=== PATIENT | female | born 1980 | race Caucasian/White ===

== ENCOUNTER 2016-08-03 13:52 | Emergency (ER) | payer OTHER ==
--- NOTE | 2016-08-03 14:18 | ED CLINICAL REPORT ---
Clinical Report - Physicians/Mid Levels [facility] [address] [place] [address] 08/03/2016 13:54 Patient: RICHY LINARES Time Seen: 14:10; upon arrival, initial patient contact, initial documentation, patient care assumed. Arrived- By private vehicle. Historian- patient. HISTORY OF PRESENT ILLNESS Chief Complaint: DENTAL PAIN. This started last night and is still present. Pain described as severe. The patient has had toothache, jaw pain and facial pain. (top L 3 back teeth, and 1 bottom back L tooth, teeth are broken and there was work done on them a long time ago, pain started last night, using oragel and otc motrin, no relief, no dentist). Similar symptoms previously: Milder. Recent medical care: Not recently seen/assessed. REVIEW OF SYSTEMS No fever or difficulty breathing. All systems otherwise negative, except as recorded above. PAST HISTORY See nurses notes. PROBLEMS: no known problems. ADDITIONAL SURGERIES: Gallbladder Surgery. Tubal Ligation. --14:13 Pasha Lira R.N. SOCIAL HISTORY Light tobacco smoker. Occasional alcohol use. History of occasional drug use: marijuana. No recent travel. Is a local resident. FAMILY HISTORY Negative. ADDITIONAL NOTES The nursing notes have been reviewed with agreement regarding the chief complaint, HPI, ROS, PMH and patient medications and allergies. PHYSICAL EXAM Vital Signs: 08/03/2016 14:10 BP: 142/120. HR: 88. RR: 20. O2 saturation: 100%. Temp: 98.2 F. Pain level now: 1010. Have been reviewed as abnormal. Hypertensive. Heart rate normal. Respiratory rate normal. Temperature normal. Oxygen saturation normal. Appearance: Alert. No acute distress. (tearful). Head: Normal external inspection. Eyes: Pupils equal, round and reactive to light. Conjunctivae and eyelids normal. ENT: Ears normal. Nose normal. Pharynx normal. Lips normal. Gums normal. No trismus present. Uvula midline. (all molars 1,2,3 L top and bottom capped, no obvious s/s of infection or caries, no gum swelling, and no obvious broken pieces). Neck: Normal inspection. Trachea midline. No adenopathy. Thyroid normal. Neck supple. Respiratory: No respiratory distress. Skin: Normal skin color. No rash. Normal skin turgor. Extremities: Extremities exhibit normal ROM. Extremities nontender. Neuro: Oriented X 3. No motor deficit. No sensory deficit. PROGRESS AND PROCEDURES Course of Care: 14:27 08/03/16. DC on hold, nurse reporting pt is hypertensive 1428. had discussion with pt re htn and tx plan 15:52 08/03/16. nurse reporting BP better, pt ok to dc. 08/03/2016 15:41 BP: 167/96. Vital Signs: have been reviewed as normal and appear to be correct. Patient counseled in person regarding the patient's stable condition and diagnosis. Differential Diagnosis: Other possible considerations: substance abuse, dental pain, caries, abscess. Above considerations are based on history and physical exam. Differential diagnosis was discussed with patient. Disposition: Discharged home in good and improved condition (14:18). Condition: good and stable. CLINICAL IMPRESSION Moderate dental pain. Uncontrolled hypertension. INSTRUCTIONS Warnings: GENERAL WARNINGS: Return or contact your physician immediately if your condition worsens or changes unexpectedly, if not improving as expected, or if other problems arise. Specifically return if problem worsens. Prescription Medications: Zofran 4 mg: Take 1 orally every six hours as needed for nausea/vomiting. Dispense ten (10). No refills. Substitution is permissible. Cleocin 300 mg: take 1 capsule orally every 6 hours for 7 days. No refills. Substitution is permissible. Keymar 5 mg / 325 mg tablets: take 1 to 2 orally every 6 hours as needed for pain. Dispense fifteen (15). No refills. Substitution is permissible. Follow-up: Follow up with a dentist in about three days even if well. Call for an appointment. Summary of care provided to patient. Screening today revealed the patient's blood pressure to be in the hypertensive range. The patient should follow up with a primary care provider for blood pressure management. Understanding of the discharge instructions verbalized by patient. (Electronically signed by Rocío Salinas A.R.N.P. 08/03/2016 18:17)
--- NOTE | 2016-08-03 14:19 | ED NURSING NOTES ---
Clinical Report - Nurses [facility] [place] [address] 08/03/2016 13:54 [id number] Triage time 14:10. Chief Complaint: (Dental pain, onset last night. Pt reports broken teeth on left upper and lower. No relief from OTC pain meds.). 14:22 08/03/16. ( Ice pack provided at Triage). SEPSIS SCREEN: Sepsis Screen. Negative (no infection suspected/documented). LINDSAY COMA SCORE: [place] Coma Scale: 15- eyes open spontaneously (4); best verbal response- oriented x 4 (5); best motor response- obeys commands (6). --14:23 Pasha Lira R.N. 14:10 08/03/16. BP: 142/120. HR: 88. RR: 20. O2 saturation: 100% on room air. Temp: 98.2 F. Pain level now: 02/06. --14:23 Pasha Lira R.N. Weight: 94.3 kg stated. Height/Length: 61 inches Per Patient. BMI: 39.3. --14:14 Pasha Lira R.N. Medications Ibuprofen Oral. --14:12 Pasha Lira R.N. Allergies Penicillins. --14:12 Pasha Lira R.N. History Arrived by private vehicle. Historian: patient. This started last night. 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 --14:23 Pasha Lira R.N. PROBLEMS: no known problems. ADDITIONAL SURGERIES: Gallbladder Surgery. Tubal Ligation. --14:13 Pasha Lira R.N. Interventions ID band on patient. To treatment room. --14:23 Pasha Lira R.N. PHYSICAL ASSESSMENT 14:26 08/03/16. Ambulatory to room. GENERAL / NEURO / PSYCH: Alert. Oriented X 4. Appears in distress. HEENT: Pupils equal, round and reactive to light. ( left side of her face is swollen). RESPIRATORY: Respirations not labored. Chest nontender. Breath sounds within normal limits. CVS: Capillary refill less than 2 seconds. Pulses within normal limits. SKIN: Skin is warm and dry. Normal skin turgor. ( bruising under the left eye, left facial errythema). --14:28 Pasha Lira R.N. NURSING PROGRESS NOTES 14:28 08/03/16. Head of bed elevated. Reassurance given. Two patient identifiers checked. Call light placed in reach. Bed placed in lowest position. Brakes of bed on. Patient ready for evaluation- chart flagged. --14:29 Pasha Lira R.N. 14:29 08/03/2016 Hydrocodone-APAP (Hydrocodone-Acetaminophen) PO 5/325 mg Tablets 1 tab given. Allergies verified, confirmed 5 rights and sedative warning given to the patient. --14:29 Jessica Sandoval R.N. 14:30 08/03/2016 Metoprolol PO Tablets 50 mg given. Allergies verified and confirmed 5 rights. --14:30 Jessica Sandoval R.N. 14:30 08/03/16. ( Discussed HTN with ANESTHESIA TECH.). --14:30 Pasha Lira R.N. 15:03 08/03/16. BP: 142/102 (large adult cuff) taken on the right arm, while sitting. Pain level now: 07/07. --15:03 Jessica Sandoval R.N. 15:10 08/03/16. BP: 154/100 (large adult cuff) taken on the left arm, while sitting. Pain level now: 08/07. --15:17 Jessica Sandoval R.N. 15:41 08/03/16. BP: 167/96 (large adult cuff) taken on the right arm, while sitting. --15:41 Jessica Sandoval R.N. DISPOSITION / DISCHARGE 16:08/03/16. Departure time: 16:Aug 03 2016. Condition at departure: improved. No learning barriers present. Discharge instructions provided and reviewed with the patient. Reviewed medication(s) side effects, precautions and dosing information. Prescription(s) given to the patient. Patient verbalized understanding. Written instructions provided in [place]. The patient was discharged by the nurse practitioner. She was discharged home and accompanied by spouse. She left the Emergency Department ambulatory and via private vehicle. Spouse driving. ( Patient given list of low income dental referral, patient had no further questions). --16:06 Jessica Sandoval R.N. 16:03 08/03/16. BP: 162/83 (large adult cuff) taken on the left arm, while sitting. HR: 80. RR: 16 (regular). O2 saturation: 100% on room air. Temp: 98.6 F (oral). Pain level now: 4/10. Additional comments: ANESTHESIA TECH notified and was ok with DC. --16:06 Jessica Sandoval R.N. Locked/Released at 08/03/2016 16:07 by Jessica Sandoval R.N.
--- NOTE | 2016-08-03 14:19 | ED NURSING NOTES ---
Clinical Report - Nurses [facility] [place] [address] 08/03/2016 13:54 [id number] Triage [facility] 14:10. Chief Complaint: (Dental pain, onset last night. Pt reports broken teeth on left upper and lower. No relief from OTC pain meds.). 14:22 08/03/16. ( Ice pack provided at Triage). SEPSIS SCREEN: Sepsis Screen. Negative (no infection suspected/documented). LINDSAY COMA SCORE: [place] Coma Scale: 15- eyes open spontaneously (4); best verbal response- oriented x 4 (5); best motor response- obeys commands (6). --14:23 Pasha Lira R.N. 14:10 08/03/16. BP: 142/120. HR: 88. RR: 20. O2 saturation: 100% on room air. Temp: 98.2 F. Pain level now: 02/06. --14:23 Pasha Lira R.N. Weight: 94.3 kg stated. Height/Length: 61 inches Per Patient. BMI: 39.3. --14:14 Pasha Lira R.N. Medications Ibuprofen Oral. --14:12 Pasha Lira R.N. Allergies Penicillins. --14:12 Pasha Lira R.N. History Arrived by private vehicle. Historian: patient. This started last night. 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 --14:23 Pasha Lira R.N. PROBLEMS: no known problems. ADDITIONAL SURGERIES: Gallbladder Surgery. Tubal Ligation. --14:13 Pasha Lira R.N. Interventions ID band on patient. To treatment room. --14:23 Pasha Lira R.N. PHYSICAL ASSESSMENT 14:26 08/03/16. Ambulatory to room. GENERAL / NEURO / PSYCH: Alert. Oriented X 4. Appears in distress. HEENT: Pupils equal, round and reactive to light. ( left side of her face is swollen). RESPIRATORY: Respirations not labored. Chest nontender. Breath sounds within normal limits. CVS: Capillary refill less than 2 seconds. Pulses within normal limits. SKIN: Skin is warm and dry. Normal skin turgor. ( bruising under the left eye, left facial errythema). --14:28 Pasha Lira R.N. NURSING PROGRESS NOTES 14:28 08/03/16. Head of bed elevated. Reassurance given. Two patient identifiers checked. Call light placed in reach. Bed placed in lowest position. Brakes of bed on. Patient ready for evaluation- chart flagged. --14:29 Pasha Lira R.N. 14:29 08/03/2016 Hydrocodone-APAP (Hydrocodone-Acetaminophen) PO 5/325 mg Tablets 1 tab given. Allergies verified, confirmed 5 rights and sedative warning given to the patient. --14:29 Jessica Sandoval R.N. 14:30 08/03/2016 Metoprolol PO Tablets 50 mg given. Allergies verified and confirmed 5 rights. --14:30 Jessica Sandoval R.N. 14:30 08/03/16. ( Discussed HTN with [facility].). --14:30 Pasha Lira R.N. 15:03 08/03/16. BP: 142/102 (large adult cuff) taken on the right arm, while sitting. Pain level now: 07/07. --15:03 Jessica Sandoval R.N. 15:10 08/03/16. BP: 154/100 (large adult cuff) taken on the left arm, while sitting. Pain level now: 08/07. --15:17 Jessica Sandoval R.N. 15:41 08/03/16. BP: 167/96 (large adult cuff) taken on the right arm, while sitting. --15:41 Jessica Sandoval R.N. DISPOSITION / DISCHARGE 16:08/03/16. Departure time: 16:Aug 03 2016. Condition at departure: improved. No learning barriers present. Discharge instructions provided and reviewed with the patient. Reviewed medication(s) side effects, precautions and dosing information. Prescription(s) given to the patient. Patient verbalized understanding. Written instructions provided in [place]. The patient was discharged by the nurse practitioner. She was discharged home and accompanied by spouse. She left the Emergency Department ambulatory and via private vehicle. Spouse driving. ( Patient given list of low income dental referral, patient had no further questions). --16:06 Jessica Sandoval R.N. 16:03 08/03/16. BP: 162/83 (large adult cuff) taken on the left arm, while sitting. HR: 80. RR: 16 (regular). O2 saturation: 100% on room air. Temp: 98.6 F (oral). Pain level now: 4/10. Additional comments: [employer] notified and was ok with DC. --16:06 Jessica Sandoval R.N. Locked/Released at 08/03/2016 16:07 by Jessica Sandoval R.N.
--- NOTE | 2016-08-03 14:19 | ED ORDER SUMMARY ---
..... Patient: RICHY LINARES OrderSheet [facility] VisitID: [id number] [address] [place] [address] 35y, F Registration Date/Time: 08/03/2016 ORDER SHEET Weight: 94.3 kg (stated) Allergies: Penicillins GENERAL ORDERS: MEDICATION ORDERS: Hydrocodone-APAP PO 5/325 mg (NOW, HIGH ALERT MEDICATION) (14:15 08/03/2016 HBivens A.R.N.P.) (14:29 JSanders R.N.) Metoprolol PO 50 mg (HIGH ALERT MEDICATION, NOW) (14:25 08/03/2016 HBivens A.R.N.P.) (14:30 JSanders R.N.) IV FLUIDS: ORDER SHEET NOTES: [Electronically signed by Jessica Sandoval R.N. (16:07 08/03/2016)] [Electronically signed by Rocío Salinas.R.N.P. (18:17 08/03/2016)] [Electronically locked/signed by Jessica Sandoval R.N. (16:07 08/03/2016)]
--- NOTE | 2016-08-03 14:19 | ED ORDER SUMMARY ---
..... Patient: RICHY LINARES OrderSheet [facility] VisitID: [id number] [address] [place] [address] 35y, F Registration Date/Time: 08/03/2016 ORDER SHEET Weight: 94.3 kg (stated) Allergies: Penicillins GENERAL ORDERS: MEDICATION ORDERS: Hydrocodone-APAP PO 5/325 mg (NOW, HIGH ALERT MEDICATION) (14:15 08/03/2016 HBivens A.R.N.P.) (14:29 JSanders R.N.) Metoprolol PO 50 mg (HIGH ALERT MEDICATION, NOW) (14:25 08/03/2016 HBivens A.R.N.P.) (14:30 JSanders R.N.) IV FLUIDS: ORDER SHEET NOTES: [Electronically signed by Jessica Sandoval R.N. (16:07 08/03/2016)] [Electronically signed by Rocío Salinas.R.N.P. (18:17 08/03/2016)] [Electronically locked/signed by Jessica Sandoval R.N. (16:07 08/03/2016)]
--- NOTE | 2016-08-03 18:17 | ED DISCHARGE INSTRUCTIONS ---
Patient: RICHY LINARES General Instructions [facility] VisitID: [id number] [place] [address] 35y, F Registration Date/Time: 08/03/2016 Moderate dental pain. Uncontrolled hypertension. INSTRUCTIONS Warnings: GENERAL WARNINGS: Return or contact your physician immediately if your condition worsens or changes unexpectedly, if not improving as expected, or if other problems arise. Specifically return if problem worsens. Prescription Medications: Zofran 4 mg: Take 1 orally every six hours as needed for nausea/vomiting. Dispense ten (10). No refills. Substitution is permissible. Cleocin 300 mg: take 1 capsule orally every 6 hours for 7 days. No refills. Substitution is permissible. [place] 5 mg / 325 mg tablets: take 1 to 2 orally every 6 hours as needed for pain. Dispense fifteen (15). No refills. Substitution is permissible. Follow-up: Follow up with a dentist in about three days even if well. Call for an appointment. Summary of care provided to patient. Screening today revealed the patient's blood pressure to be in the hypertensive range. The patient should follow up with a primary care provider for blood pressure management. Understanding of the discharge instructions verbalized by patient. ADDITIONAL INFORMATION Dental Pain A crack or cavity in the tooth, which exposes the sensitive inner area of the tooth can cause tooth pain. An infection in the gum or the root of the tooth can cause pain and swelling. The pain is often made worse by drinking hot or cold fluids, or biting on hard foods. Pain may spread from the tooth to the ear or jaw on the same side. Home Care: Avoid hot and cold foods and liquids since your tooth may be sensitive to temperature changes. If your tooth is chipped or cracked, or if there is a large open cavity, apply OIL OF CLOVES (available kkqd-how-oumrhce in drug stores) directly to the tooth to reduce pain. Some pharmacies carry an hdmc-nyo-lpqcgyb "toothache kit." This contains a paste, which can be applied over the exposed tooth to decrease sensitivity. A cold pack on your jaw over the sore area may help reduce pain. You may use acetaminophen (Tylenol) or ibuprofen (Motrin, Advil) to control pain, unless another medicine was prescribed. [ NOTE: If you have chronic liver or kidney disease or ever had a stomach ulcer or GI bleeding, talk with your doctor before using these medicines.] If you have signs of an infection, an antibiotic will be given. Take it as directed. Follow-Up as directed with a dentist. Your pain may go away with the treatment given. However, only a dentist can fully evaluate and treat the cause and prevent the pain from coming back again. TOOTHACHE IS A SIGN OF DISEASE IN YOUR TOOTH AND SHOULD BE EXAMINED AND TREATED BY A DENTIST. Get Prompt Medical Attention if any of the following occur: Your face becomes swollen or red Pain worsens or spreads to the neck Fever over 100.4 F (38.0 C) Unusual drowsiness; headache or stiff neck; weakness or fainting Pus drains from the tooth Difficulty swallowing or breathing High Blood Pressure -- To Be Confirmed [No Tx] Your blood pressure was higher today than normal. Sometimes anxiety or pain can cause a temporary rise in blood pressure that later returns to normal. If your blood pressure is high on one measurement, this does not mean that you have hypertension (a chronic illness). However, you must have your blood pressure measured again within the next few days to find out if its still high. A normal blood pressure is 120/80 or less. The first (top) number is the "systolic" pressure. The second (bottom) number is the "diastolic" pressure. Hypertension exists when either the top number is 140 or higher, OR the bottom number is 90 or higher on repeated measurements. Blood pressure in the range of 120-140 (systolic) or 80-89 (diastolic) is considered "pre-hypertension". This means your are at risk for getting hypertension. You should have regular blood pressure checks to be sure your blood pressure is not rising. Home Care: Measure your blood pressure on 3 different days and write down the results. This can be done at your doctor's office or this facility. Some pharmacies and grocery stores offer automated blood pressure machines for your use. Follow Up: If your blood pressure is "high" (over 120/80) on 2 out of 3 days, you will need to follow up with your doctor for further evaluation and treatment. DO NOT PUT THIS OFF! Untreated high blood pressure increases the risk for heart attack, also known as acute myocardial infarction, or AMI, and stroke. It is a treatable condition. Get Prompt Medical Attention if any of the following occur: Chest pain or shortness of breath Severe headache Throbbing or rushing sound in the ears Nosebleed Sudden severe abdominal pain Extreme drowsiness, confusion or fainting Dizziness or vertigo (dizziness with spinning sensation) Weakness of an arm or leg or one side of the face Difficulty with speech or vision Ondansetron Oral disintegrating tablet What is this medicine? ONDANSETRON (on QUYNH se codey) is used to treat nausea and vomiting caused by chemotherapy. It is also used to prevent or treat nausea and vomiting after surgery. How should I use this medicine? These tablets are made to dissolve in the mouth. Do not try to push the tablet through the foil backing. With dry hands, peel away the foil backing and gently remove the tablet. Place the tablet in the mouth and allow it to dissolve, then swallow. While you may take these tablets with water, it is not necessary to do so. Talk to your branch operations manager regarding the use of this medicine in children. Special care may be needed. What side effects may I notice from receiving this medicine? Side effects that you should report to your doctor or health intensive care ambulance paramedic as soon as possible: allergic reactions like skin rash, itching or hives, swelling of the face, lips, or tongue breathing problems dizziness fast or irregular heartbeat feeling faint or lightheaded, falls fever and chills swelling of the hands and feet tightness in the chest Side effects that usually do not require medical attention (report to your doctor or health intensive care ambulance paramedic if they continue or are bothersome): constipation or diarrhea headache What may interact with this medicine? Do not take this medicine with any of the following medications: -apomorphine -cisapride -dofetilide -dronedarone -pimozide -thioridazine -ziprasidone This medicine may also interact with the following medications: -carbamazepine -phenytoin -rifampicin -tramadol -other medicines that prolong the QT interval (cause an abnormal heart rhythm) What if I miss a dose? If you miss a dose, take it as soon as you can. If it is almost time for your next dose, take only that dose. Do not take double or extra doses. Where should I keep my medicine? Keep out of the reach of children. Store between 2 and 30 degrees C (36 and 86 degrees F). Throw away any unused medicine after the expiration date. What should I tell my health care provider before I take this medicine? They need to know if you have any of these conditions: heart disease history of irregular heartbeat liver disease low levels of magnesium or potassium in the blood an unusual or allergic reaction to ondansetron, granisetron, other medicines, foods, dyes, or preservatives or trying to get breast-feeding What should I watch for while using this medicine? Check with your doctor or health intensive care ambulance paramedic as soon as you can if you have any sign of an allergic reaction. Clindamycin Hydrochloride Oral capsule What is this medicine? CLINDAMYCIN (CHESTERIN allyson haskins) is a lincosamide antibiotic. It is used to treat certain kinds of bacterial infections. It will not work for colds, flu, or other viral infections. How should I use this medicine? Take this medicine by mouth with a full glass of water. Follow the directions on the prescription label. You can take this medicine with food or on an empty stomach. If the medicine upsets your stomach, take it with food. Take your medicine at regular intervals. Do not take your medicine more often than directed. Take all of your medicine as directed even if you think your are better. Do not skip doses or stop your medicine early. Talk to your branch operations manager regarding the use of this medicine in children. Special care may be needed. What side effects may I notice from receiving this medicine? Side effects that you should report to your doctor or health intensive care ambulance paramedic as soon as possible: allergic reactions like skin rash, itching or hives, swelling of the face, lips, or tongue dark urine pain on swallowing redness, blistering, peeling or loosening of the skin, including inside the mouth unusual bleeding or bruising unusually weak or tired yellowing of eyes or skin Side effects that usually do not require medical attention (report to your doctor or health intensive care ambulance paramedic if they continue or are bothersome): diarrhea itching in the rectal or genital area joint pain nausea, vomiting stomach pain What may interact with this medicine? chloramphenicol erythromycin kaolin products What if I miss a dose? If you miss a dose, take it as soon as you can. If it is almost time for your next dose, take only that dose. Do not take double or extra doses. Where should I keep my medicine? Keep out of the reach of children. Store at room temperature between 20 and 25 degrees C (68 and 77 degrees F). Throw away any unused medicine after the expiration date. What should I tell my health care provider before I take this medicine? They need to know if you have any of these conditions: kidney disease liver disease stomach problems like colitis an unusual or allergic reaction to clindamycin, lincomycin, or other medicines, foods, dyes like tartrazine or preservatives or trying to get breast-feeding What should I watch for while using this medicine? Tell your doctor or healthcare professional if your symptoms do not start to get better or if they get worse. Do not treat diarrhea with over the counter products. Contact your doctor if you have diarrhea that lasts more than 2 days or if it is severe and watery. Hydrocodone Bitartrate, Acetaminophen Oral tablet What is this medicine? ACETAMINOPHEN; HYDROCODONE (a set a SHANELL yoon fen; cody droe KOE done) is a pain reliever. It is used to treat mild to moderate pain. How should I use this medicine? Take this medicine by mouth. Swallow it with a full glass of water. Follow the directions on the prescription label. If the medicine upsets your stomach, take the medicine with food or milk. Do not take more than you are told to take. Talk to your branch operations manager regarding the use of this medicine in children. This medicine is not approved for use in children. What side effects may I notice from receiving this medicine? Side effects that you should report to your doctor or health intensive care ambulance paramedic as soon as possible: allergic reactions like skin rash, itching or hives, swelling of the face, lips, or tongue breathing problems confusion feeling faint or lightheaded, falls stomach pain yellowing of the eyes or skin Side effects that usually do not require medical attention (report to your doctor or health intensive care ambulance paramedic if they continue or are bothersome): nausea, vomiting stomach upset What may interact with this medicine? alcohol antihistamines isoniazid medicines for depression, anxiety, or psychotic disturbances medicines for sleep muscle relaxants naltrexone narcotic medicines (opiates) for pain phenobarbital ritonavir tramadol What if I miss a dose? If you miss a dose, take it as soon as you can. If it is almost time for your next dose, take only that dose. Do not take double or extra doses. Where should I keep my medicine? Keep out of the reach of children. This medicine can be abused. Keep your medicine in a safe place to protect it from theft. Do not share this medicine with anyone. Selling or giving away this medicine is dangerous and against the law. Store at room temperature between 15 and 30 degrees C (59 and 86 degrees F). Protect from light. Keep container tightly closed. Throw away any unused medicine after the expiration date. Discard unused medicine and used packaging carefully. Pets and children can be harmed if they find used or lost packages. What should I tell my health care provider before I take this medicine? They need to know if you have any of these conditions: brain tumor Crohn's disease, inflammatory bowel disease, or ulcerative colitis drink more than 3 alcohol-containing drinks per day drug abuse or addiction head injury heart or circulation problems kidney disease or problems going to the bathroom liver disease lung disease, asthma, or breathing problems an unusual or allergic reaction to acetaminophen, hydrocodone, other opioid analgesics, other medicines, foods, dyes, or preservatives or trying to get breast-feeding What should I watch for while using this medicine? Tell your doctor or health intensive care ambulance paramedic if your pain does not go away, if it gets worse, or if you have new or a different type of pain. You may develop tolerance to the medicine. Tolerance means that you will need a higher dose of the medicine for pain relief. Tolerance is normal and is expected if you take the medicine for a long time. Do not suddenly stop taking your medicine because you may develop a severe reaction. Your body becomes used to the medicine. This does NOT mean you are addicted. Addiction is a behavior related to getting and using a drug for a non-medical reason. If you have pain, you have a medical reason to take pain medicine. Your doctor will tell you how much medicine to take. If your doctor wants you to stop the medicine, the dose will be slowly lowered over time to avoid any side effects. You may get drowsy or dizzy when you first start taking the medicine or change doses. Do not drive, use machinery, or do anything that may be dangerous until you know how the medicine affects you. Stand or sit up slowly. There are different types of narcotic medicines (opiates) for pain. If you take more than one type at the same time, you may have more side effects. Give your health care provider a list of all medicines you use. Your doctor will tell you how much medicine to take. Do not take more medicine than directed. Call emergency for help if you have problems breathing. The medicine will cause constipation. Try to have a bowel movement at least every 2 to 3 days. If you do not have a bowel movement for 3 days, call your doctor or health intensive care ambulance paramedic. Too much acetaminophen can be very dangerous. Do not take Tylenol (acetaminophen) or medicines that contain acetaminophen with this medicine. Many non-prescription medicines contain acetaminophen. Always read the labels carefully. You have been given the following additional information: Dental Pain Hypertension, To Be Confirmed Ondansetron Oral disintegrating tablet Clindamycin Hydrochloride Oral capsule Hydrocodone Bitartrate, Acetaminophen Oral tablet (Electronically signed by Rocío Salinas A.R.N.PMargie 08/03/2016 18:17)
--- NOTE | 2016-08-03 18:18 | ED MED RECONCILIATION SUMMARY ---
Patient: RICHY LINARES Medication Reconciliation Report [facility] VisitID: [id number] [address] [place] [address] 35y, F Registration Date/Time: 08/03/2016 Weight: 94.3 kg Height/Length: 61 in. BMI: 39.3 ALLERGIES: Penicillins The patient's Home Medications are listed below: THE FOLLOWING MEDICATIONS NEED TO BE RECONCILED: Ibuprofen Oral The source(s) of the original Home Medication information: Not obtained. The following Medications were given to the patient in the Emergency Department: Hydrocodone-APAP [PO] PO 1 tab, administered: 08/03/2016 2:29:00 PM Metoprolol [PO] PO 50 mg, administered: 08/03/2016 2:30:00 PM The following Medications were prescribed to the patient: Zofran 4 mg: Take 1 orally every six hours as needed for nausea/vomiting. Dispense ten (10). No refills. Substitution is permissible. -- Rocío Salinas A.R.N.P. Cleocin 300 mg: take 1 capsule orally every 6 hours for 7 days. No refills. Substitution is permissible. -- Rocío Salinas, Martinez.R.N.P. Ralph 5 mg / 325 mg tablets: take 1 to 2 orally every 6 hours as needed for pain. Dispense fifteen (15). No refills. Substitution is permissible. -- Rocío Salinas A.R.N.P.
--- NOTE | 2016-08-03 18:18 | ED MED RECONCILIATION SUMMARY ---
Patient: RICHY LINARES Medication Reconciliation Report [facility] VisitID: [id number] [address] [place] [address] 35y, F Registration Date/Time: 08/03/2016 Weight: 94.3 kg Height/Length: 61 in. BMI: 39.3 ALLERGIES: Penicillins The patient's Home Medications are listed below: THE FOLLOWING MEDICATIONS NEED TO BE RECONCILED: Ibuprofen Oral The source(s) of the original Home Medication information: Not obtained. The following Medications were given to the patient in the Emergency Department: Hydrocodone-APAP [PO] PO 1 tab, administered: 08/03/2016 2:29:00 PM Metoprolol [PO] PO 50 mg, administered: 08/03/2016 2:30:00 PM The following Medications were prescribed to the patient: Zofran 4 mg: Take 1 orally every six hours as needed for nausea/vomiting. Dispense ten (10). No refills. Substitution is permissible. -- Rocío Salinas A.R.N.P. Cleocin 300 mg: take 1 capsule orally every 6 hours for 7 days. No refills. Substitution is permissible. -- Rocío Salinas, Martinez.R.N.P. [place] 5 mg / 325 mg tablets: take 1 to 2 orally every 6 hours as needed for pain. Dispense fifteen (15). No refills. Substitution is permissible. -- Rocío Salinas A.R.N.P.
--- NOTE | 2016-08-03 18:18 | ED MAR SUMMARY ---
..... Medication Administration Record [facility] [address] [place] [address] Patient: RICHY LINARES Visit ID: [id number] 35y, F Weight: 94.3 kg Height/Length: 61 in BMI: 39.3 ALLERGIES: Penicillins Given 14:29 08/03/2016 Jessica Sandoval R.N. Medication Administered: HYDROCODONE-APAP [PO] (HYDROCODONE-ACETAMINOPHEN), Dose: 1 tab 5/325 mg Tablets PO. Medication Ordered: Hydrocodone-APAP PO 5/325 mg (NOW, HIGH ALERT MEDICATION). Given 14:30 08/03/2016 Jessica Sandoval RCatie Medication Administered: METOPROLOL [PO], Dose: 50 mg Tablets PO. Medication Ordered: Metoprolol PO 50 mg (HIGH ALERT MEDICATION, NOW).
--- NOTE | 2016-08-03 18:18 | ED MAR SUMMARY ---
..... Medication Administration Record [facility] [address] [place] [address] Patient: RICHY LINARES Visit ID: [id number] 35y, F Weight: 94.3 kg Height/Length: 61 in BMI: 39.3 ALLERGIES: Penicillins Given 14:29 08/03/2016 Jessica Sandoval R.N. Medication Administered: HYDROCODONE-APAP [PO] (HYDROCODONE-ACETAMINOPHEN), Dose: 1 tab 5/325 mg Tablets PO. Medication Ordered: Hydrocodone-APAP PO 5/325 mg (NOW, HIGH ALERT MEDICATION). Given 14:30 08/03/2016 Jessica Sandoval RCatie Medication Administered: METOPROLOL [PO], Dose: 50 mg Tablets PO. Medication Ordered: Metoprolol PO 50 mg (HIGH ALERT MEDICATION, NOW).
== END 2016-08-03 16:05 | disposition home or self-care (01) ==
LOC: ED SRH 13:52
DX: K08.89 Other specified disorders of teeth and supporting structures (principal); R03.0 Elevated blood-pressure reading, without diagnosis of hypertension; F17.210 Nicotine dependence, cigarettes, uncomplicated; Z88.0 Allergy status to penicillin

== ENCOUNTER 2016-08-25 20:48 | Emergency (ER) | payer OTHER ==
--- NOTE | 2016-08-25 21:26 | ED ORDER SUMMARY ---
..... Patient: RICHY LINARES OrderSheet [facility] VisitID: [id number] [address] [place] [address] 36y, F Registration Date/Time: 08/25/2016 ORDER SHEET Weight: 94.3 kg (stated) Allergies: Strawberries, Penicillin GENERAL ORDERS: MEDICATION ORDERS: Hydrocodone-APAP PO 5/325 mg (NOW, HIGH ALERT MEDICATION) (21:17 08/25/2016 HBivens A.R.N.P.) (21:23 Bob R.N.) IV FLUIDS: ORDER SHEET NOTES: [Electronically signed by Tobin Rocha R.N. (21:40 08/25/2016)] [Electronically signed by Rocío SalinasR.N.PMargie (22:20 08/25/2016)] [Electronically locked/signed by Tobin Rocha R.N. (21:40 08/25/2016)]
--- NOTE | 2016-08-25 21:26 | ED NURSING NOTES ---
Clinical Report - Nurses [facility] [address] [place] [address] 08/25/2016 20:50 Patient: RICHY LINARES TRIAGE Triage time 20:53 Aug 25 2016. Acuity: LEVEL 5. Chief Complaint: RIGHT UPPER TOOTHACHE and SWELLING OF JAW / FACE. Alert. SEPSIS SCREEN: Sepsis Screen. Negative (no infection suspected/documented). --20:57 Tobin Rocha R.N. 20:53 08/25/16. HR: 89. RR: 18. O2 saturation: 98% on room air. Temp: 98.1 F. --20:57 Tobin Rocha R.N. 21:01 08/25/16. BP: 145/107. --21:01 Tobin Rocha R.N. 21:03 08/25/16. Pain level now: 12/07. --21:03 Tobin Rocha R.N. Weight: 94.3 kg stated. Height/Length: 61 inches Per Patient. BMI: 39.3. --20:53 Tobin Rocha R.N. Medications Clindamycin HCl Oral. --20:55 Tobin Rocha R.N. Ibuprofen Oral. --20:55 Tobin Rocha R.N. Tylenol. --20:55 Tobin Rcoha R.N. Tylenol Oral. --20:55 Tobin Rocha R.N. Allergies Strawberries. --20:55 Tobin Rocha R.N. Penicillin. --20:55 Tobin Rocha R.N. History Arrived by private vehicle. Historian: patient. Accompanied by family. The patient has a dental appointment scheduled. She has had ear pain. No fever. 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 PAST MEDICAL HX: Immunizations: up-to-date. Last normal menstrual period- July 2016. SOCIAL HX: Heavy tobacco smoker. No alcohol use or drug use. No infectious disease exposure. FALL RISK ASSESSMENT: Fall risk assessment completed. No fall risk identified. NUTRITIONAL RISK ASSESSMENT: The nutritional risk assessment revealed no deficiencies. FUNCTIONAL ASSESSMENT: Functional assessment: no impairments noted. LEARNING NEEDS ASSESSMENT: The learning needs assessment revealed no barriers. SKIN INTEGRITY ASSESSMENT: Skin integrity risk assessment completed. No skin integrity risk identified. --20:57 Tobin Rocha R.N. ( Pt has had a toothache for about a week now. She chipped her tooth and has had subsequent pain ever since. Pt saw her dentist on Sunday but they were unable to pull tooth d/t active infection. Pt presents today in pain.). --21:01 Tobin Rocha R.N. PROBLEMS: Hypertension. Dental Pain. --20:56 Tobin Rocha R.N. ADDITIONAL SURGERIES: Gallbladder Surgery. Tubal Ligation. --20:56 Tobin Rocha R.N. Interventions ID band on patient. To treatment room. --20:57 Tobin Rocha R.N. PHYSICAL ASSESSMENT Ambulatory to room. GENERAL / NEURO / PSYCH: Alert. Oriented X 4. Appears in pain and in distress. HEENT: Facial swelling present. Dental tenderness. Dental decay. ( R posterior molar chipped). Mucous membranes are pink. RESPIRATORY: Respirations not labored. SKIN: Skin is warm and dry. --20:59 Tobin Rocha R.N. NURSING PROGRESS NOTES The plan of care for this patient has been created. Monitoring of patient in place. Head of bed elevated. Reassurance given. Two patient identifiers checked. Call light placed in reach. Bed placed in lowest position. Patient ready for evaluation- ED physician notified. --20:59 Tobin Rocha R.N. 21:23 08/25/2016 Hydrocodone-APAP (Hydrocodone-Acetaminophen) PO 5/325 mg Tablets 1 tab given. Allergies verified, confirmed 5 rights and sedative warning given to the patient and patient's director physical therapy. --21:23 Tobin Rocha R.N. ( Pt doubled over in pain, ordered pain medication given, awaiting DC paperwork. Technical Operations Manager at bedside.). --21:27 Tobin Rocha R.N. DISPOSITION / DISCHARGE Condition at departure: stable. The goals identified in the patient's plan of care were met. No learning barriers present. Discharge instructions provided and reviewed with the patient and family. Reviewed warnings (Pt instructed not to drive or drink ETOH while taking the Rx [place].). Reviewed medication(s) side effects, precautions, dosing and course information. Prescription(s) given to the patient. Treatments reviewed (Oil of Cloves recommended for additional pain relief of toothache). Patient verbalized understanding. Written instructions provided in [place]. The patient was discharged by the nurse practitioner. She was discharged home and accompanied by director physical therapy. She left the Emergency Department ambulatory and via private vehicle. Technical Operations Manager driving. ( Pt dc'd in stable condition, ambulatory, sent with Rx and necessary DC paperwork.). --21:39 Tobin Rocha R.N. Departure time: 21:39 Aug 25 2016. --21:40 Tobin Rocha R.N. Locked/Released at 08/25/2016 21:40 by Tobin Rocha R.N.
--- NOTE | 2016-08-25 21:26 | ED NURSING NOTES ---
Clinical Report - Nurses [facility] [address] [place] [address] 08/25/2016 20:50 Patient: RICHY LINARES TRIAGE Triage time 20:53 Aug 25 2016. Acuity: LEVEL 5. Chief Complaint: RIGHT UPPER TOOTHACHE and SWELLING OF JAW / FACE. Alert. SEPSIS SCREEN: Sepsis Screen. Negative (no infection suspected/documented). --20:57 Tobin Rocha R.N. 20:53 08/25/16. HR: 89. RR: 18. O2 saturation: 98% on room air. Temp: 98.1 F. --20:57 Tobin Rocha R.N. 21:01 08/25/16. BP: 145/107. --21:01 Tobin Rocha R.N. 21:03 08/25/16. Pain level now: 12/07. --21:03 Tobin Rocha R.N. Weight: 94.3 kg stated. Height/Length: 61 inches Per Patient. BMI: 39.3. --20:53 Tobin Rocha R.N. Medications Clindamycin HCl Oral. --20:55 Tobin Rocha R.N. Ibuprofen Oral. --20:55 Tobin Rocha R.N. Tylenol. --20:55 Tobin Rocha R.N. Tylenol Oral. --20:55 Tobin Rocha R.N. Allergies Strawberries. --20:55 Tobin Rocha R.N. Penicillin. --20:55 Tobin Rocha R.N. History Arrived by private vehicle. Historian: patient. Accompanied by family. The patient has a dental appointment scheduled. She has had ear pain. No fever. 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 PAST MEDICAL HX: Immunizations: up-to-date. Last normal menstrual period- July 2016. SOCIAL HX: Heavy tobacco smoker. No alcohol use or drug use. No infectious disease exposure. FALL RISK ASSESSMENT: Fall risk assessment completed. No fall risk identified. NUTRITIONAL RISK ASSESSMENT: The nutritional risk assessment revealed no deficiencies. FUNCTIONAL ASSESSMENT: Functional assessment: no impairments noted. LEARNING NEEDS ASSESSMENT: The learning needs assessment revealed no barriers. SKIN INTEGRITY ASSESSMENT: Skin integrity risk assessment completed. No skin integrity risk identified. --20:57 Tobin Rocha R.N. ( Pt has had a toothache for about a week now. She chipped her tooth and has had subsequent pain ever since. Pt saw her dentist on Sunday but they were unable to pull tooth d/t active infection. Pt presents today in pain.). --21:01 Tobin Rocha R.N. PROBLEMS: Hypertension. Dental Pain. --20:56 Tobin Rocha R.N. ADDITIONAL SURGERIES: Gallbladder Surgery. Tubal Ligation. --20:56 Tobin Rocha R.N. Interventions ID band on patient. To treatment room. --20:57 Tobin Rocha R.N. PHYSICAL ASSESSMENT Ambulatory to room. GENERAL / NEURO / PSYCH: Alert. Oriented X 4. Appears in pain and in distress. HEENT: Facial swelling present. Dental tenderness. Dental decay. ( R posterior molar chipped). Mucous membranes are pink. RESPIRATORY: Respirations not labored. SKIN: Skin is warm and dry. --20:59 Tobin Rocha R.N. NURSING PROGRESS NOTES The plan of care for this patient has been created. Monitoring of patient in place. Head of bed elevated. Reassurance given. Two patient identifiers checked. Call light placed in reach. Bed placed in lowest position. Patient ready for evaluation- ED physician notified. --20:59 Tobin Rocha R.N. 21:23 08/25/2016 Hydrocodone-APAP (Hydrocodone-Acetaminophen) PO 5/325 mg Tablets 1 tab given. Allergies verified, confirmed 5 rights and sedative warning given to the patient and patient's lay out technician. --21:23 Tobin Rocha R.N. ( Pt doubled over in pain, ordered pain medication given, awaiting DC paperwork. Lance Crewmember/Mlrs Sergeant at bedside.). --21:27 Tobin Rocha R.N. DISPOSITION / DISCHARGE Condition at departure: stable. The goals identified in the patient's plan of care were met. No learning barriers present. Discharge instructions provided and reviewed with the patient and family. Reviewed warnings (Pt instructed not to drive or drink ETOH while taking the Rx [place].). Reviewed medication(s) side effects, precautions, dosing and course information. Prescription(s) given to the patient. Treatments reviewed (Oil of Cloves recommended for additional pain relief of toothache). Patient verbalized understanding. Written instructions provided in Chinese. The patient was discharged by the nurse practitioner. She was discharged home and accompanied by lay out technician. She left the Emergency Department ambulatory and via private vehicle. Lance Crewmember/Mlrs Sergeant driving. ( Pt dc'd in stable condition, ambulatory, sent with Rx and necessary DC paperwork.). --21:39 Tobin Rocha R.N. Departure time: 21:39 Aug 25 2016. --21:40 Tobin Rocha R.N. Locked/Released at 08/25/2016 21:40 by Tobin Rocha R.N.
--- NOTE | 2016-08-25 21:26 | ED ORDER SUMMARY ---
..... Patient: RICHY LINARES OrderSheet [facility] VisitID: [id number] [address] [place] [address] 36y, F Registration Date/Time: 08/25/2016 ORDER SHEET Weight: 94.3 kg (stated) Allergies: Strawberries, Penicillin GENERAL ORDERS: MEDICATION ORDERS: Hydrocodone-APAP PO 5/325 mg (NOW, HIGH ALERT MEDICATION) (21:17 08/25/2016 HBivens A.R.N.P.) (21:23 Bob R.N.) IV FLUIDS: ORDER SHEET NOTES: [Electronically signed by Tobin Rocha R.N. (21:40 08/25/2016)] [Electronically signed by Rocío SalinasR.N.PMargie (22:20 08/25/2016)] [Electronically locked/signed by Tobin Rocha R.N. (21:40 08/25/2016)]
--- NOTE | 2016-08-25 21:26 | ED CLINICAL REPORT ---
Clinical Report - Physicians/Mid Levels [facility] [address] [place] [address] 08/25/2016 20:50 Patient: RICHY LINARES Time Seen: 20:58; initial patient contact, initial documentation, patient care assumed. Arrived- By private vehicle. Historian- patient. HISTORY OF PRESENT ILLNESS Chief Complaint: DENTAL PAIN. This started several weeks and is still present. Pain described as severe. No sore throat, mouth sores, nasal discharge or congestion or ear pain. No jaw pain or facial pain. She has had toothache and swelling of the jaw and face. (tooth broke off even more since last visit here). Similar symptoms previously: Chronically, milder. Recent medical care: The patient was seen recently at this facility. ( txed here 08/03 for same thing, went to dentist, but dentist won't pull it yet). REVIEW OF SYSTEMS No fever or difficulty breathing. All systems otherwise negative, except as recorded above. PAST HISTORY See nurses notes. PROBLEMS: Hypertension. Dental Pain. --20:56 Tobin Rocha R.N. ADDITIONAL SURGERIES: Gallbladder Surgery. Tubal Ligation. --20:56 Tobin Rocha R.N. SOCIAL HISTORY Heavy tobacco smoker. No alcohol use or drug use. No recent travel. Is a local resident. FAMILY HISTORY Negative. ADDITIONAL NOTES The nursing notes have been reviewed with agreement regarding the chief complaint, HPI, ROS, PMH and patient medications and allergies. PHYSICAL EXAM Vital Signs: 08/25/2016 20:53 HR: 89. RR: 18. O2 saturation: 98%. Temp: 98.1 F. Have been reviewed as normal and appear to be correct. Appearance: Alert. No acute distress. Head: Normal external inspection. Eyes: Pupils equal, round and reactive to light. Conjunctivae and eyelids normal. ENT: Moderate, localized dental decay (lower right third molar) (broken off with decay). No gingival tenderness, induration, swelling or fluctuance. Ears normal. Nose normal. Trismus present. Pharynx normal. Lips normal. Gums normal. Uvula midline. Neck: Normal inspection. Trachea midline. No adenopathy. Thyroid normal. Neck supple. Respiratory: No respiratory distress. Skin: Normal skin color. No rash. Normal skin turgor. Extremities: Extremities exhibit normal ROM. Extremities nontender. Neuro: Oriented X 3. No motor deficit. No sensory deficit. PROGRESS AND PROCEDURES Course of Care: pt politely declined shot for pain. 08/25/2016 21:01 BP: 145/107. Vital Signs: have been reviewed as abnormal and appear to be correct. Hypertensive. Patient counseled in person regarding the patient's stable condition and diagnosis. Differential Diagnosis: Other possible considerations: dental abscess, caries, pain, substance abuse. Above considerations are based on history. Differential diagnosis was discussed with patient. Disposition: Discharged home in good and improved condition (21:26). Condition: good and stable. CLINICAL IMPRESSION Dental caries (localized) INSTRUCTIONS Warnings: GENERAL WARNINGS: Return or contact your physician immediately if your condition worsens or changes unexpectedly, if not improving as expected, or if other problems arise. Specifically return if problem worsens. Prescription Medications: Keflex 500 mg: take 1 capsule orally every 6 hours for 7 days. No refills. Substitution is permissible. [place] 5 mg / 325 mg tablets: take 1 to 2 orally every 6 hours as needed for pain. Dispense fifteen (15). No refills. Substitution is permissible. Follow-up: Follow up with a dentist in about three days even if well. Call for an appointment. Summary of care provided to patient. Understanding of the discharge instructions verbalized by patient. (Electronically signed by Rocío Salinas A.R.N.P. 08/25/2016 22:20)
--- NOTE | 2016-08-25 22:20 | ED MED RECONCILIATION SUMMARY ---
Patient: RICHY LINARES Medication Reconciliation Report [facility] VisitID: [id number] [address] [place] [address] 36y, F Registration Date/Time: 08/25/2016 Weight: 94.3 kg Height/Length: 61 in. BMI: 39.3 ALLERGIES: Penicillin, Strawberries The patient's Home Medications are listed below: THE FOLLOWING MEDICATIONS NEED TO BE RECONCILED: Clindamycin HCl Oral Ibuprofen Oral Tylenol Tylenol Oral The source(s) of the original Home Medication information: Not obtained. The following Medications were given to the patient in the Emergency Department: Hydrocodone-APAP [PO] PO 1 tab, administered: 08/25/2016 9:23:00 PM The following Medications were prescribed to the patient: Keflex 500 mg: take 1 capsule orally every 6 hours for 7 days. No refills. Substitution is permissible. -- Rocío Salinas, RobertaR.N.P. [place] 5 mg / 325 mg tablets: take 1 to 2 orally every 6 hours as needed for pain. Dispense fifteen (15). No refills. Substitution is permissible. -- Rocío Salinas, Martinez.R.N.P.
--- NOTE | 2016-08-25 22:20 | ED DISCHARGE INSTRUCTIONS ---
Patient: RICHY LINARES General Instructions [facility] VisitID: [id number] [place] [address] 36y, F Registration Date/Time: 08/25/2016 Dental caries (localized) INSTRUCTIONS Warnings: GENERAL WARNINGS: Return or contact your physician immediately if your condition worsens or changes unexpectedly, if not improving as expected, or if other problems arise. Specifically return if problem worsens. Prescription Medications: Keflex 500 mg: take 1 capsule orally every 6 hours for 7 days. No refills. Substitution is permissible. [place] 5 mg / 325 mg tablets: take 1 to 2 orally every 6 hours as needed for pain. Dispense fifteen (15). No refills. Substitution is permissible. Follow-up: Follow up with a dentist in about three days even if well. Call for an appointment. Summary of care provided to patient. Understanding of the discharge instructions verbalized by patient. ADDITIONAL INFORMATION Dental Cavity A dental cavity is a pit or crater in the enamel surface of the tooth. This exposes the sensitive inner layer of the tooth and causes pain. If untreated, the cavity will get bigger and may cause an infection or abscess in the root of the tooth. An infection in the tooth is a much more serious problem and may require a root canal or removal of the entire tooth. The tooth pain may be made worse by drinking hot or cold fluids. It may spread from the tooth to the ear or jaw on the same side. Home Care: Avoid hot and cold foods, and liquids since your tooth may be sensitive to temperature changes. If your tooth is chipped or cracked, or if there is a large open cavity, apply OIL OF CLOVES (available ohoq-jzm-gfhojym in drug stores) directly to the tooth to reduce pain. Some pharmacies carry an mmhp-jgi-brlzklx "toothache kit." This contains oil of cloves and a paste, which can be applied over the exposed tooth to decrease sensitivity. An ice pack on your jaw over the sore area may help to reduce pain. You may use acetaminophen (Tylenol) or ibuprofen (Motrin, Advil) to control pain, unless another pain medicine was prescribed. [ NOTE: If you have liver disease or ever had a stomach ulcer, talk with your doctor before using these medicines.] If you have signs of an infection, an antibiotic will be given. Take it as directed. Follow-Up with your dentist as directed. Although your pain may go away with the treatment given, only a dentist can fully evaluate and treat this problem to prevent further tooth damage. Get Prompt Medical Attention if any of the following occur: Redness or swelling of the face Pain worsens or spreads to the neck Fever over 100.5 F (38C) Unusual drowsiness; headache or stiff neck; weakness or fainting Pus drains from the tooth or gum Difficulty swallowing or breathing Dental Pain A crack or cavity in the tooth, which exposes the sensitive inner area of the tooth can cause tooth pain. An infection in the gum or the root of the tooth can cause pain and swelling. The pain is often made worse by drinking hot or cold fluids, or biting on hard foods. Pain may spread from the tooth to the ear or jaw on the same side. Home Care: Avoid hot and cold foods and liquids since your tooth may be sensitive to temperature changes. If your tooth is chipped or cracked, or if there is a large open cavity, apply OIL OF CLOVES (available yrjz-qkk-evvoeal in drug stores) directly to the tooth to reduce pain. Some pharmacies carry an bzfi-knu-eezokgw "toothache kit." This contains a paste, which can be applied over the exposed tooth to decrease sensitivity. A cold pack on your jaw over the sore area may help reduce pain. You may use acetaminophen (Tylenol) or ibuprofen (Motrin, Advil) to control pain, unless another medicine was prescribed. [ NOTE: If you have chronic liver or kidney disease or ever had a stomach ulcer or GI bleeding, talk with your doctor before using these medicines.] If you have signs of an infection, an antibiotic will be given. Take it as directed. Follow-Up as directed with a dentist. Your pain may go away with the treatment given. However, only a dentist can fully evaluate and treat the cause and prevent the pain from coming back again. TOOTHACHE IS A SIGN OF DISEASE IN YOUR TOOTH AND SHOULD BE EXAMINED AND TREATED BY A DENTIST. Get Prompt Medical Attention if any of the following occur: Your face becomes swollen or red Pain worsens or spreads to the neck Fever over 100.4 F (38.0 C) Unusual drowsiness; headache or stiff neck; weakness or fainting Pus drains from the tooth Difficulty swallowing or breathing Cephalexin Monohydrate Oral tablet What is this medicine? CEPHALEXIN (sef a LUIS ENRIQUE in) is a cephalosporin antibiotic. It is used to treat certain kinds of bacterial infections It will not work for colds, flu, or other viral infections. How should I use this medicine? Take this medicine by mouth with a full glass of water. Follow the directions on the prescription label. This medicine can be taken with or without food. Take your medicine at regular intervals. Do not take your medicine more often than directed. Take all of your medicine as directed even if you think you are better. Do not skip doses or stop your medicine early. Talk to your venetian blind machine operator regarding the use of this medicine in children. While this drug may be prescribed for selected conditions, precautions do apply. What side effects may I notice from receiving this medicine? Side effects that you should report to your doctor or health healthcare prof as soon as possible: allergic reactions like skin rash, itching or hives, swelling of the face, lips, or tongue breathing problems pain or trouble passing urine redness, blistering, peeling or loosening of the skin, including inside the mouth severe or watery diarrhea unusually weak or tired yellowing of the eyes, skin Side effects that usually do not require medical attention (report to your doctor or health healthcare prof if they continue or are bothersome): gas or heartburn genital or anal irritation headache joint or muscle pain nausea, vomiting What may interact with this medicine? probenecid some other antibiotics What if I miss a dose? If you miss a dose, take it as soon as you can. If it is almost time for your next dose, take only that dose. Do not take double or extra doses. There should be at least 4 to 6 hours between doses. Where should I keep my medicine? Keep out of the reach of children. Store at room temperature between 59 and 86 degrees F (15 and 30 degrees C). Throw away any unused medicine after the expiration date. What should I tell my health care provider before I take this medicine? They need to know if you have any of these conditions: kidney disease stomach or intestine problems, especially colitis an unusual or allergic reaction to cephalexin, other cephalosporins, penicillins, other antibiotics, medicines, foods, dyes or preservatives or trying to get breast-feeding What should I watch for while using this medicine? Tell your doctor or health healthcare prof if your symptoms do not begin to improve in a few days. Do not treat diarrhea with over the counter products. Contact your doctor if you have diarrhea that lasts more than 2 days or if it is severe and watery. If you have diabetes, you may get a false-positive result for sugar in your urine. Check with your doctor or health healthcare prof. Hydrocodone Bitartrate, Acetaminophen Oral tablet What is this medicine? ACETAMINOPHEN; HYDROCODONE (a set a SHANELL yoon fen; cody droe KOE done) is a pain reliever. It is used to treat mild to moderate pain. How should I use this medicine? Take this medicine by mouth. Swallow it with a full glass of water. Follow the directions on the prescription label. If the medicine upsets your stomach, take the medicine with food or milk. Do not take more than you are told to take. Talk to your venetian blind machine operator regarding the use of this medicine in children. This medicine is not approved for use in children. What side effects may I notice from receiving this medicine? Side effects that you should report to your doctor or health healthcare prof as soon as possible: allergic reactions like skin rash, itching or hives, swelling of the face, lips, or tongue breathing problems confusion feeling faint or lightheaded, falls stomach pain yellowing of the eyes or skin Side effects that usually do not require medical attention (report to your doctor or health healthcare prof if they continue or are bothersome): nausea, vomiting stomach upset What may interact with this medicine? alcohol antihistamines isoniazid medicines for depression, anxiety, or psychotic disturbances medicines for sleep muscle relaxants naltrexone narcotic medicines (opiates) for pain phenobarbital ritonavir tramadol What if I miss a dose? If you miss a dose, take it as soon as you can. If it is almost time for your next dose, take only that dose. Do not take double or extra doses. Where should I keep my medicine? Keep out of the reach of children. This medicine can be abused. Keep your medicine in a safe place to protect it from theft. Do not share this medicine with anyone. Selling or giving away this medicine is dangerous and against the law. Store at room temperature between 15 and 30 degrees C (59 and 86 degrees F). Protect from light. Keep container tightly closed. Throw away any unused medicine after the expiration date. Discard unused medicine and used packaging carefully. Pets and children can be harmed if they find used or lost packages. What should I tell my health care provider before I take this medicine? They need to know if you have any of these conditions: brain tumor Crohn's disease, inflammatory bowel disease, or ulcerative colitis drink more than 3 alcohol-containing drinks per day drug abuse or addiction head injury heart or circulation problems kidney disease or problems going to the bathroom liver disease lung disease, asthma, or breathing problems an unusual or allergic reaction to acetaminophen, hydrocodone, other opioid analgesics, other medicines, foods, dyes, or preservatives or trying to get breast-feeding What should I watch for while using this medicine? Tell your doctor or health healthcare prof if your pain does not go away, if it gets worse, or if you have new or a different type of pain. You may develop tolerance to the medicine. Tolerance means that you will need a higher dose of the medicine for pain relief. Tolerance is normal and is expected if you take the medicine for a long time. Do not suddenly stop taking your medicine because you may develop a severe reaction. Your body becomes used to the medicine. This does NOT mean you are addicted. Addiction is a behavior related to getting and using a drug for a non-medical reason. If you have pain, you have a medical reason to take pain medicine. Your doctor will tell you how much medicine to take. If your doctor wants you to stop the medicine, the dose will be slowly lowered over time to avoid any side effects. You may get drowsy or dizzy when you first start taking the medicine or change doses. Do not drive, use machinery, or do anything that may be dangerous until you know how the medicine affects you. Stand or sit up slowly. There are different types of narcotic medicines (opiates) for pain. If you take more than one type at the same time, you may have more side effects. Give your health care provider a list of all medicines you use. Your doctor will tell you how much medicine to take. Do not take more medicine than directed. Call emergency for help if you have problems breathing. The medicine will cause constipation. Try to have a bowel movement at least every 2 to 3 days. If you do not have a bowel movement for 3 days, call your doctor or health healthcare prof. Too much acetaminophen can be very dangerous. Do not take Tylenol (acetaminophen) or medicines that contain acetaminophen with this medicine. Many non-prescription medicines contain acetaminophen. Always read the labels carefully. You have been given the following additional information: Dental Cavity Dental Pain Cephalexin Monohydrate Oral tablet Hydrocodone Bitartrate, Acetaminophen Oral tablet (Electronically signed by Rocío Salinas A.R.N.P. 08/25/2016 22:20)
--- NOTE | 2016-08-25 22:20 | ED MED RECONCILIATION SUMMARY ---
Patient: RICHY LINARES Medication Reconciliation Report [facility] VisitID: [id number] [place] [address] 36y, F Registration Date/Time: 08/25/2016 Weight: 94.3 kg Height/Length: 61 in. BMI: 39.3 ALLERGIES: Penicillin, Strawberries The patient's Home Medications are listed below: THE FOLLOWING MEDICATIONS NEED TO BE RECONCILED: Clindamycin HCl Oral Ibuprofen Oral Tylenol Tylenol Oral The source(s) of the original Home Medication information: Not obtained. The following Medications were given to the patient in the Emergency Department: Hydrocodone-APAP [PO] PO 1 tab, administered: 08/25/2016 9:23:00 PM The following Medications were prescribed to the patient: Keflex 500 mg: take 1 capsule orally every 6 hours for 7 days. No refills. Substitution is permissible. -- Rocío Salinas, RobertaR.N.P. [place] 5 mg / 325 mg tablets: take 1 to 2 orally every 6 hours as needed for pain. Dispense fifteen (15). No refills. Substitution is permissible. -- Rocío Salinas, Martinez.R.N.P.
--- NOTE | 2016-08-25 22:20 | ED MAR SUMMARY ---
..... Medication Administration Record [facility] [address] [place] [address] Patient: RICHY LINARES Visit ID: [id number] 36y, F Weight: 94.3 kg Height/Length: 61 in BMI: 39.3 ALLERGIES: Penicillin, Strawberries Given 21:23 08/25/2016 Tobin Rocha R.N. Medication Administered: HYDROCODONE-APAP [PO] (HYDROCODONE-ACETAMINOPHEN), Dose: 1 tab 5/325 mg Tablets PO. Medication Ordered: Hydrocodone-APAP PO 5/325 mg (NOW, HIGH ALERT MEDICATION).
--- NOTE | 2016-08-25 22:20 | ED DISCHARGE INSTRUCTIONS ---
Patient: RICHY LINARES General Instructions [facility] VisitID: [id number] [place] [address] 36y, F Registration Date/Time: 08/25/2016 Dental caries (localized) INSTRUCTIONS Warnings: GENERAL WARNINGS: Return or contact your physician immediately if your condition worsens or changes unexpectedly, if not improving as expected, or if other problems arise. Specifically return if problem worsens. Prescription Medications: Keflex 500 mg: take 1 capsule orally every 6 hours for 7 days. No refills. Substitution is permissible. Blaine 5 mg / 325 mg tablets: take 1 to 2 orally every 6 hours as needed for pain. Dispense fifteen (15). No refills. Substitution is permissible. Follow-up: Follow up with a dentist in about three days even if well. Call for an appointment. Summary of care provided to patient. Understanding of the discharge instructions verbalized by patient. ADDITIONAL INFORMATION Dental Cavity A dental cavity is a pit or crater in the enamel surface of the tooth. This exposes the sensitive inner layer of the tooth and causes pain. If untreated, the cavity will get bigger and may cause an infection or abscess in the root of the tooth. An infection in the tooth is a much more serious problem and may require a root canal or removal of the entire tooth. The tooth pain may be made worse by drinking hot or cold fluids. It may spread from the tooth to the ear or jaw on the same side. Home Care: Avoid hot and cold foods, and liquids since your tooth may be sensitive to temperature changes. If your tooth is chipped or cracked, or if there is a large open cavity, apply OIL OF CLOVES (available rjws-gjr-xrblefm in drug stores) directly to the tooth to reduce pain. Some pharmacies carry an wziz-eih-zwpalmp "toothache kit." This contains oil of cloves and a paste, which can be applied over the exposed tooth to decrease sensitivity. An ice pack on your jaw over the sore area may help to reduce pain. You may use acetaminophen (Tylenol) or ibuprofen (Motrin, Advil) to control pain, unless another pain medicine was prescribed. [ NOTE: If you have liver disease or ever had a stomach ulcer, talk with your doctor before using these medicines.] If you have signs of an infection, an antibiotic will be given. Take it as directed. Follow-Up with your dentist as directed. Although your pain may go away with the treatment given, only a dentist can fully evaluate and treat this problem to prevent further tooth damage. Get Prompt Medical Attention if any of the following occur: Redness or swelling of the face Pain worsens or spreads to the neck Fever over 100.5 F (38C) Unusual drowsiness; headache or stiff neck; weakness or fainting Pus drains from the tooth or gum Difficulty swallowing or breathing Dental Pain A crack or cavity in the tooth, which exposes the sensitive inner area of the tooth can cause tooth pain. An infection in the gum or the root of the tooth can cause pain and swelling. The pain is often made worse by drinking hot or cold fluids, or biting on hard foods. Pain may spread from the tooth to the ear or jaw on the same side. Home Care: Avoid hot and cold foods and liquids since your tooth may be sensitive to temperature changes. If your tooth is chipped or cracked, or if there is a large open cavity, apply OIL OF CLOVES (available xdlb-cif-kdialsf in drug stores) directly to the tooth to reduce pain. Some pharmacies carry an wmmn-gov-kqoavyu "toothache kit." This contains a paste, which can be applied over the exposed tooth to decrease sensitivity. A cold pack on your jaw over the sore area may help reduce pain. You may use acetaminophen (Tylenol) or ibuprofen (Motrin, Advil) to control pain, unless another medicine was prescribed. [ NOTE: If you have chronic liver or kidney disease or ever had a stomach ulcer or GI bleeding, talk with your doctor before using these medicines.] If you have signs of an infection, an antibiotic will be given. Take it as directed. Follow-Up as directed with a dentist. Your pain may go away with the treatment given. However, only a dentist can fully evaluate and treat the cause and prevent the pain from coming back again. TOOTHACHE IS A SIGN OF DISEASE IN YOUR TOOTH AND SHOULD BE EXAMINED AND TREATED BY A DENTIST. Get Prompt Medical Attention if any of the following occur: Your face becomes swollen or red Pain worsens or spreads to the neck Fever over 100.4 F (38.0 C) Unusual drowsiness; headache or stiff neck; weakness or fainting Pus drains from the tooth Difficulty swallowing or breathing Cephalexin Monohydrate Oral tablet What is this medicine? CEPHALEXIN (sef a LUIS ENRIQUE in) is a cephalosporin antibiotic. It is used to treat certain kinds of bacterial infections It will not work for colds, flu, or other viral infections. How should I use this medicine? Take this medicine by mouth with a full glass of water. Follow the directions on the prescription label. This medicine can be taken with or without food. Take your medicine at regular intervals. Do not take your medicine more often than directed. Take all of your medicine as directed even if you think you are better. Do not skip doses or stop your medicine early. Talk to your e m assembler regarding the use of this medicine in children. While this drug may be prescribed for selected conditions, precautions do apply. What side effects may I notice from receiving this medicine? Side effects that you should report to your doctor or health healthcare network consultant as soon as possible: allergic reactions like skin rash, itching or hives, swelling of the face, lips, or tongue breathing problems pain or trouble passing urine redness, blistering, peeling or loosening of the skin, including inside the mouth severe or watery diarrhea unusually weak or tired yellowing of the eyes, skin Side effects that usually do not require medical attention (report to your doctor or health healthcare network consultant if they continue or are bothersome): gas or heartburn genital or anal irritation headache joint or muscle pain nausea, vomiting What may interact with this medicine? probenecid some other antibiotics What if I miss a dose? If you miss a dose, take it as soon as you can. If it is almost time for your next dose, take only that dose. Do not take double or extra doses. There should be at least 4 to 6 hours between doses. Where should I keep my medicine? Keep out of the reach of children. Store at room temperature between 59 and 86 degrees F (15 and 30 degrees C). Throw away any unused medicine after the expiration date. What should I tell my health care provider before I take this medicine? They need to know if you have any of these conditions: kidney disease stomach or intestine problems, especially colitis an unusual or allergic reaction to cephalexin, other cephalosporins, penicillins, other antibiotics, medicines, foods, dyes or preservatives or trying to get breast-feeding What should I watch for while using this medicine? Tell your doctor or health healthcare network consultant if your symptoms do not begin to improve in a few days. Do not treat diarrhea with over the counter products. Contact your doctor if you have diarrhea that lasts more than 2 days or if it is severe and watery. If you have diabetes, you may get a false-positive result for sugar in your urine. Check with your doctor or health healthcare network consultant. Hydrocodone Bitartrate, Acetaminophen Oral tablet What is this medicine? ACETAMINOPHEN; HYDROCODONE (a set a SHANELL yoon fen; cody droe KOE done) is a pain reliever. It is used to treat mild to moderate pain. How should I use this medicine? Take this medicine by mouth. Swallow it with a full glass of water. Follow the directions on the prescription label. If the medicine upsets your stomach, take the medicine with food or milk. Do not take more than you are told to take. Talk to your e m assembler regarding the use of this medicine in children. This medicine is not approved for use in children. What side effects may I notice from receiving this medicine? Side effects that you should report to your doctor or health healthcare network consultant as soon as possible: allergic reactions like skin rash, itching or hives, swelling of the face, lips, or tongue breathing problems confusion feeling faint or lightheaded, falls stomach pain yellowing of the eyes or skin Side effects that usually do not require medical attention (report to your doctor or health healthcare network consultant if they continue or are bothersome): nausea, vomiting stomach upset What may interact with this medicine? alcohol antihistamines isoniazid medicines for depression, anxiety, or psychotic disturbances medicines for sleep muscle relaxants naltrexone narcotic medicines (opiates) for pain phenobarbital ritonavir tramadol What if I miss a dose? If you miss a dose, take it as soon as you can. If it is almost time for your next dose, take only that dose. Do not take double or extra doses. Where should I keep my medicine? Keep out of the reach of children. This medicine can be abused. Keep your medicine in a safe place to protect it from theft. Do not share this medicine with anyone. Selling or giving away this medicine is dangerous and against the law. Store at room temperature between 15 and 30 degrees C (59 and 86 degrees F). Protect from light. Keep container tightly closed. Throw away any unused medicine after the expiration date. Discard unused medicine and used packaging carefully. Pets and children can be harmed if they find used or lost packages. What should I tell my health care provider before I take this medicine? They need to know if you have any of these conditions: brain tumor Crohn's disease, inflammatory bowel disease, or ulcerative colitis drink more than 3 alcohol-containing drinks per day drug abuse or addiction head injury heart or circulation problems kidney disease or problems going to the bathroom liver disease lung disease, asthma, or breathing problems an unusual or allergic reaction to acetaminophen, hydrocodone, other opioid analgesics, other medicines, foods, dyes, or preservatives or trying to get breast-feeding What should I watch for while using this medicine? Tell your doctor or health healthcare network consultant if your pain does not go away, if it gets worse, or if you have new or a different type of pain. You may develop tolerance to the medicine. Tolerance means that you will need a higher dose of the medicine for pain relief. Tolerance is normal and is expected if you take the medicine for a long time. Do not suddenly stop taking your medicine because you may develop a severe reaction. Your body becomes used to the medicine. This does NOT mean you are addicted. Addiction is a behavior related to getting and using a drug for a non-medical reason. If you have pain, you have a medical reason to take pain medicine. Your doctor will tell you how much medicine to take. If your doctor wants you to stop the medicine, the dose will be slowly lowered over time to avoid any side effects. You may get drowsy or dizzy when you first start taking the medicine or change doses. Do not drive, use machinery, or do anything that may be dangerous until you know how the medicine affects you. Stand or sit up slowly. There are different types of narcotic medicines (opiates) for pain. If you take more than one type at the same time, you may have more side effects. Give your health care provider a list of all medicines you use. Your doctor will tell you how much medicine to take. Do not take more medicine than directed. Call emergency for help if you have problems breathing. The medicine will cause constipation. Try to have a bowel movement at least every 2 to 3 days. If you do not have a bowel movement for 3 days, call your doctor or health healthcare network consultant. Too much acetaminophen can be very dangerous. Do not take Tylenol (acetaminophen) or medicines that contain acetaminophen with this medicine. Many non-prescription medicines contain acetaminophen. Always read the labels carefully. You have been given the following additional information: Dental Cavity Dental Pain Cephalexin Monohydrate Oral tablet Hydrocodone Bitartrate, Acetaminophen Oral tablet (Electronically signed by Rocío Salinas A.R.N.P. 08/25/2016 22:20)
--- NOTE | 2016-08-25 22:20 | ED MAR SUMMARY ---
..... Medication Administration Record [facility] [address] [place] [address] Patient: RICHY LINARES Visit ID: [id number] 36y, F Weight: 94.3 kg Height/Length: 61 in BMI: 39.3 ALLERGIES: Penicillin, Strawberries Given 21:23 08/25/2016 Tobin Rocha R.N. Medication Administered: HYDROCODONE-APAP [PO] (HYDROCODONE-ACETAMINOPHEN), Dose: 1 tab 5/325 mg Tablets PO. Medication Ordered: Hydrocodone-APAP PO 5/325 mg (NOW, HIGH ALERT MEDICATION).
== END 2016-08-25 21:39 | disposition home or self-care (01) ==
LOC: ED SRH 20:48
DX: K02.9 Dental caries, unspecified (principal); I10 Essential (primary) hypertension; F17.290 Nicotine dependence, other tobacco product, uncomplicated; Z88.0 Allergy status to penicillin; Z91.018 Allergy to other foods